=== PATIENT | female | born 1965 | race American Indian/Alaskan Native ===

== ENCOUNTER 2020-09-28 09:57 | Emergency (ER) | payer SELFPAY ==
--- NOTE | 2020-09-28 11:24 | Emergency Department Report ---
- General Chief Complaint: Headache Stated Complaint: SINUS PUI?: No Time Seen by Provider: 09/28/20 11:17 Source: patient Mode of arrival: Ambulatory Limitations: No Limitations - History of Present Illness Initial Comments: 55-year-old -[place] female presents to the emergency room complaining of sinus pressure and pain for 4 days. Patient states that her nose just continued to run like a faucet and has to put tissue in to help. Patient states she has postnasal cough worse at night. States that she has been taking Claritin and alternating with Zyrtec's. Patient denies any headache but does states pressure. She denies any fever chills. She states that she suffers from seasonal allergies. She is partially vaccinated for Covid. MD Complaint: rhinorrhea, nasal congestion, sinus pain Onset/Timin -: days(s) Severity: moderate Quality: other (Pressure) Consistency: constant Improves With: nothing Worsens With: nothing Associated Symptoms: rhinorrhea, nasal congestion, cough (Postnasal drip). denies: fever, chills, myalgias, diaphoresis, headache, sore throat, shortness of breath, nausea, vomiting, diarrhea, confusion, right sweats, weight loss, epistaxis Treatments Prior to Arrival: none - Related Data Allergies Allergy/AdvReac Type Severity Reaction Status Date / Time metronidazole [From Flagyl] Allergy Rash Verified 09/28/20 10:08 ED Review of Systems ROS: Stated complaint: SINUS Other details as noted in HPI ED Past Medical Hx - Past Medical History Previous Medical History?: No - Surgical History Past Surgical History?: Yes Additional Surgical History: - Social History Smoking Status: Current Every Day Smoker Substance Use Type: Alcohol ED Physical Exam - General Limitations: No Limitations General appearance: alert, in no apparent distress - Head Head exam: Present: atraumatic, normocephalic - Eye Eye exam: Present: normal appearance - ENT ENT exam: Present: mucous membranes moist, normal external ear exam, other (Maxillary) - Neck Neck exam: Present: normal inspection, full ROM. Absent: lymphadenopathy - Respiratory Respiratory exam: Present: normal lung sounds bilaterally. Absent: respiratory distress, wheezes, accessory muscle use - Cardiovascular Cardiovascular Exam: Present: regular rate, normal rhythm, normal heart sounds - Extremities Exam Extremities exam: Present: normal inspection - Back Exam Back exam: Present: normal inspection, full ROM - Neurological Exam Neurological exam: Present: alert, oriented X3, normal gait - Expanded Neurological Exam Expanded Cranial nerves: EOM's Intact: Normal, Gag Reflex: Normal, Tongue Deviation: Normal, Nystagmus: Normal, Facial Sensation: Normal, Facial Palsy with Forehead Movement: Normal, Facial Palsy without Forehead Movement: Normal Cerebellar function: Finger to Nose: Normal, Heel to Herrera: Normal, Romberg: Normal Upper motor neuron: Chong Neglect: Normal, Pronator Drift: Normal, Babinski Sign: Normal, Sensory Extinction: Normal Motor strength exam: RUE: 4, LUE: 4, RLE: 4, LLE: 4 Best Eye Response (Melina): (4) open spontaneously Best Motor Response ([place]): (6) obeys commands Best Verbal Response ([place]): (5) oriented [place] Total: 15 - Psychiatric Psychiatric exam: Present: normal affect, normal mood - Skin Skin exam: Present: warm, dry, intact, normal color. Absent: rash ED Course Vital Signs 09/28/20 09/28/20 10:03 11:52 Temperature 98.7 F 98.6 F Pulse Rate 61 81 Respiratory 18 18 Rate Blood Pressure 143/90 Blood Pressure 130/77 [Right] O2 Sat by Pulse 100 98 Oximetry Critical care attestation.: If time is entered above; I have spent that time in minutes in the direct care of this critically ill patient, excluding procedure time. ED Disposition Clinical Impression: Allergic rhinitis Qualifiers: Allergic rhinitis trigger: unspecified Allergic rhinitis seasonality: seasonal Qualified Code(s): J30.2 - Other seasonal allergic rhinitis Disposition: DC-01 TO HOME OR SELFCARE Is pt being admited?: No Does the pt Need Aspirin: No Condition: Stable Instructions: Allergic Rhinitis, Adult, [id number] Additional Instructions: Recommend [id number] Claritin Zyrtec's, Sudafed every 12 hours, Flonase and Zaditor and eyedrops. All these medications are [id number]. Please increase your fluid intake while taking these medications as they can cause dry mouth. Be sure to take your blood pressure medication. And follow-up with an boiler installer. Referrals: [facility] [Provider Group] - 3-5 Days Forms: Work/School Release Form(ED)
[2020-09-28 11:55] VITALS: BP 130/77
== END 2020-09-28 11:55 | disposition home or self-care (01) ==
LOC: ED 09:57
DX: J30.9 Allergic rhinitis, unspecified (principal); F17.200 Nicotine dependence, unspecified, uncomplicated; Z79.899 Other long term (current) drug therapy; Z98.890 Other specified postprocedural states; Z88.8 Allergy status to other drugs, medicaments and biological substances
CPT/HCPCS: 99282